=== PATIENT | female | born 1990 | race Caucasian/White ===

== ENCOUNTER 2021-07-08 17:42 | Emergency (ER) | payer OTHER ==
[~2021-07-08] VITALS: Ht 170.2 cm; Wt 76.4 kg
[2021-07-08 18:45] LABS: BASO % 0 % (0-3); EOS # 0.1 x10^3/uL (0.0-0.7); EOS % 2 % (0-3); HEMATOCRIT 36.8 % (36.0-47.0); HEMOGLOBIN 12.2 g/dL (12.0-15.5); LYMPH # 1.7 x10^3/uL (1.0-4.8); LYMPH % 28 % (24-48); MEAN CORPUSCULAR HEMOGLOBIN 32 pg (25-35); MEAN CORPUSCULAR HGB CONC 33 g/dL (31-37); MEAN CORPUSCULAR VOLUME 96 fL (79-100); MONO # 0.7 x10^3/uL (0.0-1.1); MONO % 11 % (0-9); NEUT # 3.6 x10^3uL (1.8-7.7); NEUT % 59 % (31-73); PLATELET COUNT 263 x10^3/uL (140-400); RED BLOOD COUNT 3.83 x10^6/uL (3.50-5.40); RED CELL DISTRIBUTION WIDTH 13.3 % (11.5-14.5); WHITE BLOOD COUNT 6.2 x10^3/uL (4.0-11.0)
[2021-07-08 18:55] LABS: CALCIUM 8.8 mg/dL (8.5-10.1); CREATININE 0.8 mg/dL (0.6-1.0); GFR 83.7; POTASSIUM 3.8 mmol/L (3.5-5.1)
--- NOTE | 2021-07-08 18:58 | RAD ---
EXAM: OBSTETRIC ULTRASOUND, <14 WEEKS. HISTORY: Vaginal bleeding in . COMPARISON: None. FINDINGS: Sonographic evaluation of the pelvis was performed transabdominally and transvaginally. The uterus is retroverted and measures 8.1 x 6.8 x 5.3 cm. There is a single intrauterine gestation m easuring 6 weeks 1 day. heart rate is 95 bpm. The yolk sac is relatively large. The gestational sac is regular. There is no subchorionic collection. The right ovary measures 4.0 x 2.3 x 1.8 cm. The left ovary measures 2.8 x 3.1 x 2.4 cm. There is nor mal Doppler flow bilaterally. There is no adnexal mass. There is no significant free fluid. IMPRESSION: 1. Single intrauterine gestation measuring 6 weeks 1 day. bradycardia at 95 bpm. The yolk sac i s large in comparison with the pole, concerning for a nonviable gestation. Ongoing follow-up is recommended. Electronically signed by: Tonio Barbosa MD (07/08/2021 6:56 PM) [facility]
[2021-07-08 19:01] LABS: ALBUMIN 3.9 g/dL (3.4-5.0); ALBUMIN/GLOBULIN RATIO 1.1 (1.0-1.7); TOTAL BILIRUBIN 0.1 mg/dL (0.2-1.0); TOTAL PROTEIN 7.5 g/dL (6.4-8.2)
--- NOTE | 2021-07-08 19:08 | PHYS DOC ---
Past History Additional Past Medical Histor: PREVISOUS MISCARRIAGE, D&C (PAPO GALAVIZ Trevor [employer]) Past Surgical History: No Surgical History (NISHPAPO PAYNE [employer]) Alcohol Use: None (NISHPAPO PAYNE [employer]) Adult General Chief Complaint Chief Complaint: ABDOMINAL PAIN IN [facility] HPI Patient is a 30-year-old female patient 7 para 2 with 5 miscarriages currently 6 weeks presenting to the ED today with vaginal bleeding that began today. Patient denies any abdominal pain or cramping. She states she knows she is having a miscarriage because she has had so many of them. She states she is not bleeding heavily. (PAPO GALAVIZ Trevor [employer]) Review of Systems Review of Systems Constitutional: Denies fever or chills [] Eyes: Denies change in visual acuity, redness, or eye pain [] HENT: Denies nasal congestion or sore throat [] Respiratory: Denies cough or shortness of breath [] Cardiovascular: No additional information not addressed in HPI [] GI: Reports vaginal bleeding in denies abdominal pain, nausea, vomiting, bloody stools or diarrhea [] : Denies dysuria or hematuria [] Musculoskeletal: Denies back pain or joint pain [] Integument: Denies rash or skin lesions [] Neurologic: Denies headache, focal weakness or sensory changes [] All other systems were reviewed and found to be within normal limits, except as documented in this note. (GUILLAUMEPAPO Trevor [employer]) Allergies Allergies Allergies Coded Allergies Type Severity Reaction Last Updated Verified amoxicillin Allergy Unknown 07/08/21 Yes (LILLYRhiannaPAPO Trevor BALL) Physical Exam Physical Exam Constitutional: Well developed, well nourished, no acute distress, non-toxic appearance. [] HENT: Normocephalic, atraumatic, bilateral external ears normal, oropharynx moist, no oral exudates, nose normal. [] Eyes: PERRLA, EOMI, conjunctiva normal, no discharge. [] Neck: Normal range of motion, no tenderness, supple, no stridor. [] Cardiovascular:Heart rate regular rhythm, no murmur [] Lungs & Thorax: Bilateral breath sounds clear to auscultation [] Abdomen: Bowel sounds normal, soft, no tenderness, no masses, no pulsatile masses. [] Skin: Warm, dry, no erythema, no rash. [] Back: No tenderness, no CVA tenderness. [] Extremities: No tenderness, no cyanosis, no clubbing, ROM intact, no edema. [] Neurologic: Alert and oriented X 3, normal motor function, normal sensory function, no focal deficits noted. [] Psychologic: Affect normal, judgement normal, mood normal. [] (PAPO GALAVIZ [employer]) Current Patient Data Vital Signs Vital Signs Date Time Temp Pulse Resp B/P (MAP) Pulse Ox O2 Delivery O2 Flow Rate FiO2 07/08/21 18:26 98.3 20 112/67 (82) 99 Room Air Lab Results Laboratory Tests Test 07/08/21 18:06 07/08/21 18:19 POC Urine HCG, Qualitative hcg positive (Negative) White Blood Count 6.2 x10^3/uL (4.0-11.0) Red Blood Count 3.83 x10^6/uL (3.50-5.40) Hemoglobin 12.2 g/dL (12.0-15.5) Hematocrit 36.8 % (36.0-47.0) Mean Corpuscular Volume 96 fL (79-100) Mean Corpuscular Hemoglobin 32 pg (25-35) Mean Corpuscular Hemoglobin Concent 33 g/dL (31-37) Red Cell Distribution Width 13.3 % (11.5-14.5) Platelet Count 263 x10^3/uL (140-400) Neutrophils (%) (Auto) 59 % (31-73) Lymphocytes (%) (Auto) 28 % (24-48) Monocytes (%) (Auto) 11 % (0-9) H Eosinophils (%) (Auto) 2 % (0-3) Basophils (%) (Auto) 0 % (0-3) Neutrophils # (Auto) 3.6 x10^3uL (1.8-7.7) Lymphocytes # (Auto) 1.7 x10^3/uL (1.0-4.8) Monocytes # (Auto) 0.7 x10^3/uL (0.0-1.1) Eosinophils # (Auto) 0.1 x10^3/uL (0.0-0.7) Basophils # (Auto) 0.0 x10^3/uL (0.0-0.2) (PAPO GALAVIZ APRN) EKG EKG [] (PAPO GALAVIZ APRN) Radiology/Procedures Radiology/Procedures []PROCEDURE: OB <14 WKS W/TV EXAM: OBSTETRIC ULTRASOUND, <14 WEEKS. HISTORY: Vaginal bleeding in . COMPARISON: None. FINDINGS: Sonographic evaluation of the pelvis was performed transabdominally and transvaginally. The uterus is retroverted and measures 8.1 x 6.8 x 5.3 cm. There is a single intrauterine gestation measuring 6 weeks 1 day. heart rate is 95 bpm. The yolk sac is relatively large. The gestational sac is regular. There is no subchorionic collection. The right ovary measures 4.0 x 2.3 x 1.8 cm. The left ovary measures 2.8 x 3.1 x 2.4 cm. There is normal Doppler flow bilaterally. There is no adnexal mass. There is no significant free fluid. IMPRESSION: 1. Single intrauterine gestation measuring 6 weeks 1 day. bradycardia at 95 bpm. The yolk sac is large in comparison with the pole, concerning for a nonviable gestation. Ongoing follow-up is recommended. Electronically signed by: Tonio Barbosa MD (07/08/2021 6:56 PM) [facility] DICTATED AND SIGNED BY: ROBE BARBOSA MD DATE: 07/08/211852 CC: CHRISTEN DAVIS MD; PAPO GALAVIZ APRN; PCP,NO ~MTH0 0 (PAPO GALAVIZ APRN) Heart Score C/O Chest Pain: N/A Risk Factors: Risk Factors: DM, Current or recent (<one month) smoker, HTN, HLP, family history of CAD, obesity. Risk Scores: Risk Factors: DM, Current or recent (<one month) smoker, HTN, HLP, family history of CAD, obesity. (PAPO GALAVIZ APRN) Course & Med Decision Making Course & Med Decision Making Pertinent Labs and Imaging studies reviewed. (See chart for details) This is a 30-year-old female patient 7 para 2 with 5 miscarriages cu rrently 6 weeks presenting to the ED today with vaginal bleeding in that began today. Positive urine hCG. Beta hCG 4166 which is lower than 6 weeks , CBC, CMP with no acute findings, urine negative for infection. OB ultrasound noted for single intrauterine gestation measuring 6 weeks 1 day. bradycardia at 95 bpm. The yolk sac is large in comparison with the pole, concerning for a nonviable gestation. Ongoing follow-up is recommended. Blood type A+ D/c to home. F/u [facility] OB. Provided return precautions. (PAPO GALAVIZ [employer]) Dragon Disclaimer Dragon Disclaimer This electronic medical record was generated, in whole or in part, using a voice recognition dictation system. (PAPO GALAVIZ [employer]) Departure Departure: Impression: Primary Impression: Threatened miscarriage in early Disposition: HOME / SELF CARE / HOMELESS Condition: STABLE Referrals: PCP,NO (PCP) Follow-up with your SPORTS PHYSIOTHERAPIST in the next 24 hours Patient Instructions: Threatened Miscarriage, [id number] Additional Instructions: Your evaluation in the emergency room shows you are have characteristics of a nonviable fetus likely a miscarriage. Please maintain bedrest, contact your SPORTS PHYSIOTHERAPIST tomorrow morning to set up a follow-up appointment. Come back to the ED at any point symptoms worsen Attending Co-Sign Attending Co-Sign The patient was seen and interviewed as well as examined at the bedside. The chart was reviewed. The case was discussed. Agree with the plan of care. (CHRISTEN DAVIS MD) Attending Signature Attending Signature I have participated in the care of this patient and I have reviewed and agree with all pertinent clinical information above including history, exam, and j carlos mmendations. (CHRISTEN DAVIS MD) Dragon Disclaimer This chart was dictated in whole or in part using Voice Recognition software in a busy, high-work load, and often noisy Emergency Department environment. It may contain unintended and wholly unrecognized errors or omissions. (CHRISTEN DAVIS MD) PAPO GALAVIZ APRN Jul 08, 2021 19:08 CHRISTEN DAVIS MD Jul 14, 2021 02:47
[2021-07-08 19:10] LABS: BILIRUBIN,URINE NEG (NEG); CLARITY,URINE CLEAR; COLOR,URINE STRAW; GLUCOSE,URINE NEG (NEG); NITRITE,URINE NEG (NEG); UROBILINOGEN,URINE 0.2 mg/dL (0.2 mg/dL)
[2021-07-08 19:11] LABS: BACTERIA,URINE 0 /HPF (0-FEW); RBC,URINE RARE /HPF (0-2); WBC,URINE 0 /HPF (0-4)
[2021-07-08 20:15] VITALS: BP 111/63
== END 2021-07-08 20:20 | disposition home or self-care (01) ==
LOC: ER 17:42
DX: O20.0 Threatened abortion (principal); Z3A.01 Less than 8 weeks gestation of pregnancy; Z88.1 Allergy status to other antibiotic agents
CPT/HCPCS: 36415; 76801; 76817; 80053; 81001; 81025; 84702; 85025; 86850; 86900; 86901; 99284